=== PATIENT | male | born 1985 | race Caucasian/White ===

== ENCOUNTER → 2021-02-05 | Outpatient (CLI) | payer OTHER ==
[~2021-02-05] VITALS: Ht 175.3 cm; Wt 93.0 kg
[~2021-02-05] MED LIST: CLARITIN10 M3 PO; FLEXERIL PO; MELOXICAM15 MG PO; NORCO5 PO; PREDNISONE 10 M10 MG PO
--- NOTE | ~2021-02-05 | HPC ---
[facility] [place] [address] PAIN MANAGEMENT CONSULTATION Name: NIR STEPHENS [id number] Admission: 02/05/21 Attend Phys: Mulugeta Crowe DO Discharge: Date of : 85 Report #: [id number] THIS REPORT FOR: cc: Aneesh Pineda MD,Mulugeta Gonzalez MD, DO ~ cc: Aneesh Pineda MD DATE OF SERVICE: 02/05/2021 REFERRING PHYSICIAN: Aneesh Pineda MD CHIEF COMPLAINT: Low back pain, left lower extremity pain with paresthesias. HISTORY OF PRESENT ILLNESS: As you know, the patient is a very pleasant 35-year-old male who reports acute onset of low back pain, left lower extremity pain began approximately two months ago. The patient denies specific injury or trauma that may have led to symptom development. He states he may have exacerbated symptoms while doing household work. He sought evaluation through [facility], who had the patient undergo MRI imaging of the lumbar spine, which showed changes at the L5-S1 level. He was advised surgical options. He was also started on physical therapy. He was unable to participate in physical therapy due to ongoing pain. He was provided the name of Dr. Pineda who saw the patient in consultation from a surgical standpoint and was advised of the surgical options that could be addressing his L5-S1 disk protrusion, but it was considered the patient should trial conservative options before looking towards more definitive surgical options given his use. He was referred on to our clinic to discuss interventional treatment options. The patient reports his pain is rhythmic and intermittent in nature. He describes the pain as a shooting, cramping, aching, sharp, stabbing, numbness and tingling. Places current pain score at 2/10. Daily average at 4/10, worst pain has been is 8-9/10. The patient states his pain is exacerbated with forward flexion of lumbar spine standing for a length of time or sitting for a length of time. Pain improves with lying down. The patient has been trialled on a prednisone taper over a 13-day period, but noted no significant pain improvement. He is on meloxicam and hydrocodone provided through his primary care physician which is providing minimal benefit. He is taking cyclobenzaprine 5 mg 2 tabs p.o. at bedtime, which is providing some analgesic effects. Due to lack of improvement with more conservative treatment options and given the findings on the MRI, the patient was referred to our clinic to discuss interventional treatment options. PAST MEDICAL HISTORY: 1. Scarlet fever. 2. [place] [address] PAIN MANAGEMENT CONSULTATION Name: NIR STEPHENS [facility] [id number] Admission: 02/05/21 Attend Phys: Mulugeta Crowe DO Discharge: Date of : 85 Report #: [id number] PAST SURGICAL HISTORY: None. SOCIAL HISTORY: The patient denies tobacco, IV or illicit drug use. He admits to 1 alcohol beverage per day. 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 He is working, not receiving workmen's compensation nor is he trying to obtain disability benefits. He is not in litigation in regards to pain. He is accompanied by his mother present in room today. REVIEW OF SYSTEMS: Positive for night sweats, fatigue and weakness, frequent and recurrent headaches, wearing corrective eyewear, asthma, wheezing, changes in bowel movements and constipation with medications, nocturia, lightheadedness, dizziness, numbness and tingling sensations in the low back radiating down the left leg and depression. All other review of systems negative per 12-point review of systems other than those listed in history of present illness. Pain impact score 44/70, moderate to severe interference of daily activities secondary to pain. ALLERGIES: CECLOR. CURRENT MEDICATIONS: Loratadine 10 mg once a day, [place] 5/325 one tab b.i.d., prednisone 10 mg once a day, meloxicam 15 mg p.o. q.a.m., cyclobenzaprine 5 mg 2 tabs p.o. at bedtime. IMAGING: MRI of the lumbar spine obtained 01/14/2021 shows L1-L2, L2-L3, L3-L4 unremarkable. L4-L5 shows some mild diffuse disk bulge, minimal facet arthrosis and ligamentum flavum hypertrophy. No central canal or neural foraminal stenosis. L5-S1 shows a large left paracentral disk protrusion with moderate degenerative disk changes and moderate S1 endplate changes, most marked along the inferior aspect of L5. There is marked left and right lateral recess stenosis and impingement of the traversing S1 nerve root at that level. Mild central canal stenosis. Mild neural foraminal stenosis. PHYSICAL EXAMINATION: VITAL SIGNS: Blood pressure 130/75, pulse is 80, respiratory rate 16 and unlabored. The patient is 97% on room air. Height 5 feet 9 inches tall, weight 205 pounds, BMI calculated 30.3. GENERAL: Well-developed, well-nourished, well-hydrated 35-year-old male appearing stated age. Pain is rated anywhere from 3-4/10. HEENT: Normocephalic, atraumatic. Pupils equal, round and responsive. He is wearing a mask in compliance with COVID-19 regulations. LUNGS: Clear. No wheeze, no rhonchi, no rales. CARDIOVASCULAR: Regular. No appreciable gallop, no rub. ABDOMEN: Soft. EXTREMITIES: Show no clubbing, no cyanosis, no appreciable edema. MUSCULOSKELETAL: Motor examination is equal 5/5 in all 4 extremities. There is [facility] [address] [place] [address] PAIN MANAGEMENT CONSULTATION Name: NIR STEPHENS Room #: REG [facility].#: [id number] Admission: 02/05/21 Attend Phys: Mulugeta Crowe DO Discharge: Date of : 85 Report #: [id number] exception of the left plantar flexion, extensor hallucis longus movement, which is rated at about 4-1/2 over 5. Deep tendon reflexes 2+/4 at patella and Achilles. Seated straight leg raising is positive on the left. Supine straight leg raising positive on the left. Randi's test is negative. Gait is antalgic favoring left lower extremity over right. Muscle bulk and tone is equal and symmetrical. Lumbar provocation testing is met with slight increase in axial back pain with rotation and lateral flexion to the left. ASSESSMENT: 1. Symptomatic lumbar radiculopathy. 2. Displacement of lumbar intervertebral disk with radiculopathy. 3. 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 4. Mild neural foraminal stenosis of lumbar spine. 5. Degenerative changes of the lumbar spine. PLAN: 1. Based on today's physical exam and history the patient provides, the distribution of symptoms, the patient is experiencing pain upon as well as the descriptors he uses in regards to pain, likely source of the patient's pain is lumbar radiculopathy. The patient and I spent time today reviewing his MRI. We discussed the findings at the L5-S1 level as the source of the patient's symptoms. There is severe lateral recess stenosis at the level secondary to a protruded disk. We discussed with the patient those findings and how they correlate to his current lumbar radicular pain. After this discussion, we then conversed about the treatment options we have available to address lumbar radiculopathy. The following was discussed with the patient. We discussed physical therapy, stretching exercises and core strengthening as a treatment approach. We discussed medication management utilizing neuropathic pain medications such as amitriptyline, nortriptyline, Cymbalta, Lyrica or gabapentin. We discussed lumbar epidural injections under fluoroscopic guidance as a treatment option. We discussed a spinal cord stimulator therapy and ultimately surgical decompression. After reviewing the risks and benefits of all proposed treatment options, the patient chose to begin with a lumbar epidural injection under fluoroscopic guidance. 2. The patient was advised due to third alliance party payer restrictions, authorization would have to be obtained before the patient could undergo a lumbar epidural injection. Authorization could take anywhere from 12-24 hours. We will begin that process immediately. Once it has been completed, we will have the patient return to undergo the first in a series of lumbar epidural injections. 3. The patient and I did discuss the possibility of starting him on neuropathic medications. He is reticent to initiate medication due to the potential side effects of sleepiness, disorientation, confusion and mental slowing. He would consider this option if medications are necessary in the future, but wants to trial epidural injections initially to determine if symptoms can improve. 3. We will see the patient back in followup visit tomorrow to undergo a lumbar [facility] [address] [place] [address] PAIN MANAGEMENT CONSULTATION Name: NIR STEPHENS Room #: [facility].#: [id number] Admission: 02/05/21 Attend Phys: Mulugeta Crowe DO Discharge: Date of : 85 Report #: [id number] epidural injection under fluoroscopic guidance, assuming we can obtain authorization. I am hopeful we will have that authorization quickly and the patient can return to undergo the procedure requested. 4. We wish to thank Dr. Aneesh Pineda for the opportunity to see this patient in consultation. We will keep you apprised of his response to treatment as we address lumbar radicular symptoms secondary to the displaced intervertebral disk at the L5-S1 level with impingement upon the left S1 nerve root. Again, we wish to thank you for the opportunity to see the patient in consultation. By: [id number] Mulugeta Crowe DO /nt
[2021-02-05 08:35] VITALS: BP 130/75
--- NOTE | 2021-02-05 08:49 | NUR ---
Pain Clinic Assessment: 1. History of Osteoarthritis: Not Applicable History of Rheumatoid Arthritis: Not Applicable 2. Height: 5 ft. 9 in. 175.3 cm. Weight: 205.0 lb. oz. 92.988 kg. Patient's BMI: 30.3 3. Vital Signs: BP: 130/75 Pulse: 80 Resp: 16 Temp: 02 Sat: 97 ECG Mon: 4. Pain Intensity: 3 5. Fall Risk: Dizziness: Y Needs help standing or walking: N Fallen in the last 3 months: N Fall risk comments: 6. Patient on Blood Thinner: None 7. History of Hypertension: N 8. Opioid Therapy greater than 6 weeks: Opiate Contract Signed: 9. Risk Assessment Tool Provided: 1 LOW RISK 10. Functional Assessment Tool: 11. Recreational Drug Use: Never Drug Type: Tobacco Use: Former Smoker Tobacco Type: Amount or Packs/day: How Many Years: Alcohol Use: Yes Frequency: Weekly Quant: 2
== END ==
LOC: PAIN 07:34
PROVIDERS: ATTEND Anesthesiology Pain Medicine
DX: M51.16 Intervertebral disc disorders with radiculopathy, lumbar region (principal); M48.061 Spinal stenosis, lumbar region without neurogenic claudication; M47.26 Other spondylosis with radiculopathy, lumbar region; M79.662 Pain in left lower leg; Z79.899 Other long term (current) drug therapy

== ENCOUNTER → 2021-02-06 | Outpatient (CLI) | payer OTHER ==
[~2021-02-06] VITALS: Ht 175.3 cm; Wt 93.0 kg
--- NOTE | ~2021-02-06 | HPC ---
[address] [place] [address] PAIN MANAGEMENT CONSULTATION Name: NIR STEPHENS Room #: REG [facility].#: [id number] Admission: 02/06/21 Attend Phys: Mulugeta Crowe DO Discharge: Date of : 85 Report #: [id number] THIS REPORT FOR: cc: Aneesh Pineda MD,Mulugeta Gonzalez MD, DO ~ cc: Aneesh Pineda MD DATE OF SERVICE: 02/06/2021 REFERRING PHYSICIAN: Dr. Aneesh Pineda CHIEF COMPLAINT: Low back pain, left lower extremity pain with paresthesias. HISTORY OF PRESENT ILLNESS: As you know, the patient is a very pleasant 35-year-old male, reporting acute onset of low back pain, left lower extremity pain that began approximately 2 months ago. He denies any specific injury or trauma that may have led to symptom development. He underwent MRI of the lumbar spine and was evaluated at [facility] for the disk protrusion at the L5-S1 level with impingement upon the nerve root at that level. He was advised of surgical options. He chose to discuss his case further with other physicians. He sought second opinion with Dr. Aneesh Pineda. Dr. Pineda did discuss the possibility of a surgical treatment, but suggesting possible epidural injections to address symptoms. He was referred on to our clinic. We saw the patient in our clinic on 02/05/2021, diagnosed with lumbar radiculopathy secondary to the displacement of the lumbar intervertebral disk at the L5-S1 level causing severe lateral recess stenosis. He established today's appointment to undergo lumbar epidural injection. He returns today in followup visit reporting pain score around 2/10. He is here today to undergo the first in the series of epidural injections. He describes pain beginning in low back radiating down the left leg. He describes the pain as shooting, cramping, aching, sharp, stabbing, numbness, tingling, exacerbated with bending, improves with lying down and standing. He returns today for the first in a series of lumbar epidural injections. ALLERGIES: CECLOR. CURRENT MEDICATIONS: Loratadine, Jeanerette, prednisone, cyclobenzaprine. SOCIAL HISTORY: The patient denies tobacco use. Denies IV or illicit drug use. Admits to 1 alcohol beverage per day. 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 IMAGING: No new imaging available. PHYSICAL EXAMINATION: VITAL SIGNS: Blood pressure 143/80, pulse 92, respiratory rate 16 and [facility] [address] [place] [address] PAIN MANAGEMENT CONSULTATION Name: NIR STEPHENS Room #: [facility]#: [id number] Admission: 02/06/21 Attend Phys: Mulugeta Crowe DO Discharge: Date of : 85 Report #: [id number] unlabored. The patient is 98% on room air. Height 5 feet 9 inches tall, weight 205 pounds, BMI calculated 30.3. GENERAL: Well-developed, well-nourished, well-hydrated 35-year-old male appearing stated age, pain is rated today 2/10. HEENT: Normocephalic, atraumatic. He is wearing a mask in compliance with COVID-19 regulations, hospital policy. EXTREMITIES: Show no clubbing, no cyanosis, no edema. MUSCULOSKELETAL: Lower extremity strength remains symmetrical 5/5, intact to light touch from L1 through S2 dermatomes. He does have slight weakness with extensor hallucis longus again today and plantar flexion on the left, which is rated at about 4.5/5. Deep tendon reflexes remain symmetrical. Seated straight leg raising positive on the left. Supine straight leg raise positive on the left. ASSESSMENT: 1. Symptomatic lumbar radiculopathy. 2. Displacement of lumbar intervertebral disk with radiculopathy. 3. 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 4. Neural foraminal stenosis of lumbar spine. 5. Degenerative changes of lumbar spine. PLAN: 1. The patient returns today in followup visit having cleared his schedule to be able to undergo a lumbar epidural injection under fluoroscopic guidance. The patient has been advised of the risks and the benefits of this procedure. These risks include but are not necessarily limited to bleeding, bruising, infection, worsening pain, no relief of pain, also risk of temporary or permanent muscle weakness, temporary or permanent nerve damage, possible paralysis, post-dural puncture, headache and . The patient states he understood and wished to proceed. 2. No medication changes made at today's visit. The patient will continue current medical therapy as prior prescribed. 3. Plan to see the patient back in followup visit in 30 days. At that time, review the efficacy of today's epidural injection to determine next in the series of epidural injections would be recommended. We are hopeful the patient will be doing well at that time and may be able to cancel the appointment if he is feeling no symptoms. PROCEDURE NOTE. DESCRIPTION OF PROCEDURE: L5-S1 right parasagittal epidural steroid injection under fluoroscopic guidance. This is the first procedure of the first series that the patient is undergoing. After obtaining written consent, the patient was taken back to the fluoroscopy [address] [address] PAIN MANAGEMENT CONSULTATION Name: NIR STEPHENS Room #: REG [facility]#: [id number] Admission: 02/06/21 Attend Phys: Mulugeta Crowe DO Discharge: Date of : 85 Report #: [id number] suite, placed in a prone position with pillow under the abdomen to decrease lumbar lordosis. The skin overlying the lumbosacral area was then prepped and draped in aseptic fashion. The L5-S1 vertebral interspace was then identified by AP fluoroscopy. The skin and subcutaneous tissue overlying the target site of injection was anesthetized with 3 mL 1% lidocaine. A 20-gauge 3-1/2 inch Tuohy needle was then advanced under fluoroscopic guidance towards the epidural space using a left parasagittal approach. The epidural space was identified using loss of resistance to air technique. After negative aspiration for heme or cerebrospinal fluid, a total of 1 mL of Omnipaque was injected. A lumbar epidurogram was confirmed using both AP and lateral fluoroscopy. After negative aspiration for heme or cerebrospinal fluid, 5 mL of a solution containing 2 mL 40 mg per mL 80 mg total triamcinolone along with 3 mL of lidocaine 1% was injected in increments. Contrast spread was noted in the posterior epidural space. The needle was then retracted approximately half way and needle tract flushed with 1 mL of 1% lidocaine . Needle was then removed. There were no apparent sensory or motor deficits in the lower extremity following the procedure. A sterile bandage was placed over the injection site. The heart rate, pulse, oximetry and blood pressure were continuously monitored after the procedure. There were no apparent complications. The patient tolerated the procedure well and was carefully escorted to the recovery room in stable condition. There were no apparent complications. After meeting discharge criteria, the patient was then discharged home. By: [id number] Mulugeta Crowe DO /nt
[2021-02-06 09:36] VITALS: BP 143/80
--- NOTE | 2021-02-06 09:42 | NUR ---
Pain Clinic Assessment: 1. History of Osteoarthritis: Not Applicable History of Rheumatoid Arthritis: Not Applicable 2. Height: 5 ft. 9 in. 175.3 cm. Weight: 205.0 lb. oz. 92.988 kg. Patient's BMI: 30.3 3. Vital Signs: BP: 143/80 Pulse: 92 Resp: 16 Temp: 02 Sat: 98 ECG Mon: 4. Pain Intensity: 2 5. Fall Risk: Dizziness: N Needs help standing or walking: N Fallen in the last 3 months: N Fall risk comments: 6. Patient on Blood Thinner: None 7. History of Hypertension: N 8. Opioid Therapy greater than 6 weeks: Opiate Contract Signed: 9. Risk Assessment Tool Provided: 1 LOW RISK 10. Functional Assessment Tool: 11. Recreational Drug Use: Never Drug Type: Tobacco Use: Former Smoker Tobacco Type: Amount or Packs/day: How Many Years: Alcohol Use: Yes Frequency: Quant:
== END | disposition home or self-care (01) ==
LOC: PAIN 06:58
PROVIDERS: ATTEND Anesthesiology Pain Medicine
DX: M51.16 Intervertebral disc disorders with radiculopathy, lumbar region (principal); M48.061 Spinal stenosis, lumbar region without neurogenic claudication; G89.29 Other chronic pain; Z98.890 Other specified postprocedural states; Z79.899 Other long term (current) drug therapy; Z87.891 Personal history of nicotine dependence; Z88.8 Allergy status to other drugs, medicaments and biological substances

== ENCOUNTER → 2021-03-12 | Outpatient (CLI) | payer OTHER ==
[~2021-03-12] VITALS: Ht 175.3 cm; Wt 94.5 kg
[2021-03-12 09:47] VITALS: BP 133/82
--- NOTE | 2021-03-12 09:52 | NUR ---
Pain Clinic Assessment: 1. History of Osteoarthritis: Not Applicable History of Rheumatoid Arthritis: Not Applicable 2. Height: 5 ft. 9 in. 175.3 cm. Weight: 208.4 lb. oz. 94.530 kg. Patient's BMI: 30.8 3. Vital Signs: BP: 133/82 Pulse: 83 Resp: 16 Temp: 02 Sat: 96 ECG Mon: 4. Pain Intensity: 6 5. Fall Risk: Dizziness: Y Needs help standing or walking: N Fallen in the last 3 months: N Fall risk comments: BENIGN BPPV (INNER EAR DISORDER) 6. Patient on Blood Thinner: None 7. History of Hypertension: N 8. Opioid Therapy greater than 6 weeks: N Opiate Contract Signed: 9. Risk Assessment Tool Provided: 1 LOW RISK 10. Functional Assessment Tool: 11. Recreational Drug Use: Never Drug Type: Tobacco Use: Former Smoker Tobacco Type: Amount or Packs/day: How Many Years: Alcohol Use: Yes Frequency: Weekly Quant: 3 TIMES A WK
--- NOTE | 2021-03-12 13:00 | HPC ---
[facility] [place] [address] PAIN MANAGEMENT CONSULTATION Name: INR STEPHENS [id number] Admission: 03/12/21 Attend Phys: Mulugeta Crowe DO Discharge: Date of : 85 Report #: [id number] THIS REPORT FOR: cc: Aneesh Pineda MD,Mulugeta Gonzalez MD, DO ~ cc: Aneesh Pineda MD DATE OF SERVICE: 03/12/2021 REFERRING PHYSICIAN: Aneesh Pineda MD CHIEF COMPLAINT: Low back pain, left lower extremity pain with paresthesias. HISTORY OF PRESENT ILLNESS: As you know, the patient is a very pleasant 35-year-old male, reporting acute onset of low back pain, left lower extremity pain that began approximately 11/2020. No specific injury or trauma. He underwent MRI imaging, which showed a large disk protrusion at the L5-S1 level with impingement upon the nerve root. He sought evaluation through Neurosurgery Department and then sought a second opinion with Dr. Aneesh Pineda. Dr. Pineda saw the patient and indicated that surgical options may be necessary, but recommended a conservative treatment approach initially. The patient was then subsequently referred to our clinic. We saw the patient in consultation 02/06/2021 and underwent the first in the series of lumbar epidural injections under fluoroscopic guidance. The patient did very well with that injection reporting an improvement of symptoms of greater than 100%, lasting for over 3-1/2 weeks. Unfortunately, his symptoms have begun to reoccur. Despite the recurrence of symptoms, he has been able to retain all his functional capabilities. He is sleeping better and reports overall 50% improvement today. He returns today in followup visit requesting a lumbar epidural injection under fluoroscopic guidance to build on success of previous intervention. The patient denies new injury or trauma. He believes he may have exacerbated symptoms while lifting his 3-year-old child. He reports pain begins in low back, radiates down the left leg. He describes the pain as shooting, cramping, aching, burning, stabbing, numbness and tingling. Pain today is rated at 6/10. He states pain is exacerbated with bending, lying down, standing and epidural injections tend to improve pain. He is returning for the second in series of epidural injections. ALLERGIES: CECLOR. CURRENT MEDICATIONS: Loratadine, Sycamore, prednisone, cyclobenzaprine. SOCIAL HISTORY: The patient denies tobacco. Denies IV or illicit drug use. Admits to 1 alcohol beverage per day. 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 [address] [address] PAIN MANAGEMENT CONSULTATION Name: NIR STEPHENS [facility] [id number] Admission: 03/12/21 Attend Phys: Mulugeta Crowe DO Discharge: Date of : 85 Report #: [id number] IMAGING: No new imaging available. PHYSICAL EXAMINATION: VITAL SIGNS: Blood pressure 133/82, pulse 83, respiratory rate 16 and unlabored. The patient is 96% on room air. Height 5 feet 9 inches tall, weight 208.4 pounds, BMI calculated 30.8. GENERAL: Well-developed, well-nourished, well-hydrated 35-year-old male appearing stated age, pain is rated today 6/10. HEENT: Normocephalic, atraumatic. Pupils equal, round. He is wearing a facemask in compliance with COVID-19 regulations/hospital policies. EXTREMITIES: Show no clubbing, no cyanosis, no edema. MUSCULOSKELETAL: Lower extremity strength is symmetrical again today. He does have a slight weakness from a strength standpoint with the extensor hallucis longus on the left. Plantar flexion appears mildly reduced on the left. Deep tendon reflexes are symmetrical. Seated straight leg raising positive on the left. Supine straight leg raising positive on the left. ASSESSMENT: 1. Symptomatic lumbar radiculopathy. 2. Displacement of lumbar intervertebral disk with radiculopathy. 3. 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 4. Neural foraminal stenosis of lumbar spine. 5. Chronic intractable pain. PLAN: 1. The patient returns today in followup visit to undergo the next in the series of lumbar epidural injections. He reported excellent benefit with previous injections, but unfortunately his symptoms have begun to reoccur. He is now reporting pain today at a level of about a 6/10. He denies new injury, new trauma or any changes in medication management that would preclude him from being able to undergo the requested epidural injection today. The patient has been advised risks and benefits, states understood and wished to proceed. 2. No medication changes made at today's visit. We recommend the patient continue current medical therapy as prior prescribed. 3. We plan to see the patient back in followup visit on an as needed basis. We are hopeful the patient once again see good and prolonged benefit with the second in the series of epidural injections. PROCEDURE NOTE DESCRIPTION OF PROCEDURE: L5-S1 right parasagittal epidural steroid injection under fluoroscopic guidance. This is the second procedure of the first series that the patient is undergoing. After obtaining written consent, the patient was taken back to the fluoroscopy [address] [address] PAIN MANAGEMENT CONSULTATION Name: NIR STEPHENS Room #: [facility]#: [id number] Admission: 03/12/21 Attend Phys: Mulugeta Crowe DO Discharge: Date of : 85 Report #: [id number] suite, placed in a prone position with pillow under the abdomen to decrease lumbar lordosis. The skin overlying the lumbosacral area was then prepped and draped in aseptic fashion. The L5-S1 vertebral interspace was then identified by AP fluoroscopy. The skin and subcutaneous tissue overlying the target site of injection was anesthetized with 3 mL 1% lidocaine. A 20-gauge 3-1/2-inch Tuohy needle was then advanced under fluoroscopic guidance towards the epidural space using a right parasagittal approach. The epidural space was identified using loss of resistance to air technique. After negative aspiration for heme or cerebrospinal fluid, a total of 1 mL of Omnipaque was injected. A lumbar epidurogram was confirmed using both AP and lateral fluoroscopy. After negative aspiration for heme or cerebrospinal fluid, 5 mL of a solution containing 2 mL 40 mg per mL 80 mg total triamcinolone along with 3 mL of lidocaine 1% was injected in increments. Contrast spread was noted in posterior epidural space. The needle was then retracted approximately half way and needle tract flushed with 1 mL of 1% lidocaine. Needle was then removed. There were no apparent sensory or motor deficits in the lower extremity following the procedure. A sterile bandage was placed over the injection site. The heart rate, pulse, oximetry and blood pressure were continuously monitored after the procedure. There were no apparent complications. The patient tolerated the procedure well and was carefully escorted to the recovery room in stable condition. There were no apparent complications. After meeting discharge criteria, the patient was then discharged home. <ELECTRONICALLY SIGNED> By: Mulugeta Crowe DO 03/12/21 1300 [id number] [id number] Mulugeta Crowe DO /nt
== END | disposition home or self-care (01) ==
LOC: PAIN 08:00
PROVIDERS: ATTEND Anesthesiology Pain Medicine
DX: M51.16 Intervertebral disc disorders with radiculopathy, lumbar region (principal); M48.061 Spinal stenosis, lumbar region without neurogenic claudication; G89.29 Other chronic pain; Z98.890 Other specified postprocedural states; Z79.899 Other long term (current) drug therapy; Z87.891 Personal history of nicotine dependence; Z88.8 Allergy status to other drugs, medicaments and biological substances